=== PATIENT | male | born 1945 | race African-American/Black ===

== ENCOUNTER 2017-04-12 00:02 | Emergency (ER) | payer OTHER ==
[~2017-04-12 00:02] MED LIST: APRESOLINE PO; ASPIRIN81 M2 PO; ATENOLOL PO; ATENOLOL50 MG PO; ATORVASTATIN CA10 MG PO; CALCIUM + D 6001 TA1 PO; CALCIUM 5001 TAB PO; CEFTIN500 MG PO; FLEXERIL10 MG PO; GLIPIZIDE10 MG PO; GLUCOTROL10 MG PO; HYDRALAZINE HCL50 MG PO; HYZAAR 100-25 T1 TA1 PO; IBUPROFEN IN40 MG/ML PO; K-DUR20 ME1 PO; K-TAB ER20 MEQ PO; LEVOCETIRIZINE D5 MG PO; LORTAB 5-325 M1 EACH PO; LOSARTAN-HCTZ1 EAC3 PO; MEDROL PO; MOBIC PO; NORVASC PO; NORVASC10 MG PO; PANTOPRAZOLE SO40 MG PO; PREDNISONE10 MG PO; PROTONIX PO; RAPAFLO8 MG PO; ROBITUSSIN DM PO; TENORMIN50 MG PO; TYLOX 5/500 CAP1 CAP PO; VITAMIN D1000 UNI1 PO; VITAMIN D1000 UNIT PO; VOLTAREN75 MG PO
== END 2017-04-12 02:01 | disposition home or self-care (01) ==
LOC: CED 00:02
DX: M54.2 Cervicalgia (principal); I10 Essential (primary) hypertension; E11.9 Type 2 diabetes mellitus without complications; C61 Malignant neoplasm of prostate; Z98.890 Other specified postprocedural states
CPT/HCPCS: 99283